=== PATIENT | female | born 1940 | race American Indian/Alaskan Native ===

== ENCOUNTER 2018-10-19 08:25 | Day surgery (SDC) | payer MEDICARE, BC ==
[2018-10-19 08:47] VITALS: BMI 31.4
[2018-10-19] MEDS ORDERED: Lidocaine 1% Inj (20ml) ONE (10:23)
[2018-10-19] MEDS ORDERED: Etomidate 20 mg/10ml Inj IV ONE (10:23)
[2018-10-19] MEDS ORDERED: Propofol 10 mg/ml Inj (20 ML) ONE (10:24)
[2018-10-19] MEDS ORDERED: Insulin Regular 1 UNITS/0.01 ML ML ONE (10:39)
[2018-10-19] MEDS ORDERED: Sodium Chloride 0.9% 1,000 ML IV SCH (10:45)
[2018-10-19] MEDS ORDERED: Insulin Regular 1 UNITS/0.01 ML ML SC ONE (10:45)
[2018-10-19 11:27] VITALS: BP 133/71; PULSE 84; RESP 16; TEMP 98.3; O2SAT 100
== END 2018-10-19 12:48 | disposition home or self-care (01) ==
LOC: ENDO 08:25
PROVIDERS: ATTEND Internal Medicine Gastroenterology
DX: Z12.11 Encounter for screening for malignant neoplasm of colon (principal); K64.8 Other hemorrhoids; I10 Essential (primary) hypertension; E11.9 Type 2 diabetes mellitus without complications; E78.5 Hyperlipidemia, unspecified; E78.00 Pure hypercholesterolemia, unspecified; M10.9 Gout, unspecified
CPT/HCPCS: 45378; 82948; J2704; J7030